=== PATIENT | male | born 1980 | race Two or more races ===

== ENCOUNTER 2016-08-30 03:35 | Emergency (ER) | payer OTHER ==
[~2016-08-30] VITALS: Ht 185.4 cm; Wt 117.9 kg
--- NOTE | ~2016-08-30 | CR20 ---
[facility]. [facility] A Service of [facility] & [facility] RADIOLOGY TEXT RESULTS PATIENT: SANDEE SALDANA LOCATION: SED : 84 UNIT #: [id number] AGE: [address]: Eben Gamino MD SEX: M ORDER DR: [id number] [place] [id number] E MR#: [id number] Acc #: [id number] NAME: SANDEE SALDANA. : 1980 SEX: M STUDY DATE/TIME: 08/30/2016 3:54 UNIT: SED ROOM: STUDY DESCRIPTION: CR Ankle Min 3 Views Lt Attending Physician: Eben Gamino M.D. Ordering Physician: Eben Gamino M.D. Primary Care Physician: Glory Gallo M.D. MEDICAL IMAGING REPORT This report is preliminary unless electronic signature is present. EXAM Left ankle series. INDICATIONS Left ankle pain after an injury yesterday. PROCEDURE Three views of the left ankle. COMPARISON None. FINDINGS Lateral ankle soft tissue swelling. No acute fracture or dislocation. IMPRESSION Lateral ankle soft tissue swelling. No acute bone injury. Dictated by... Justin Rodarte M.D. THIS IS AN ELECTRONICALLY VERIFIED REPORT Justin Rodarte M.D. at 08/30/2016 9:52 PM EED/sudha TD: 08/30/2016 11:46 JOB #: [id number] MEDICAL IMAGING REPORT Page 1 of 1
[~2016-08-30 03:35] MED LIST: IBUPROFEN; PROTONIX; SKELAXIN; VICODIN 5/500 T1 TAB
[2016-08-30] MEDS ORDERED: NO MEDICATIONS (03:44)
== END 2016-08-30 04:37 | disposition home or self-care (01) ==
LOC: SED 03:35
DX: S93.402A Sprain of unspecified ligament of left ankle, initial encounter (principal); X58.XXXA Exposure to other specified factors, initial encounter
CPT/HCPCS: 29540; 73610; 99283; J1885